=== PATIENT | female | born 1940 | race Caucasian/White ===

== ENCOUNTER 2016-07-17 18:50 | Emergency (ER) | payer OTHER ==
[~2016-07-17] VITALS: Ht 147.3 cm; Wt 44.5 kg
[2016-07-17 18:50] VITALS: BP_SYST 111
[~2016-07-17 18:50] MED LIST: METFORMIN; [UNRECOGNIZED DRUG - REMARK]
--- NOTE | 2016-07-17 18:50 | NUR ---
BROUGHT IN BY SILVANO MENJIVAR AND PLACED IN BED #3, TRIAGED, REPORT GIVEN TO MAINTENANCE WORKER
--- NOTE | 2016-07-17 19:10 | NUR ---
Pt BIB [facility] from [facility], status post-mechanical fall. Pt stated she was walking alone in the garden, then tripped, fell, and hit Left lateral head. Pt denies KO or dizziness, c/o 2/10 pain. No bruise, skin opening, or active bleeding noted. A&Ox4, denies SOB or chestpain, denies N/V/D. Will continue to monitor
--- NOTE | 2016-07-17 19:20 | NUR ---
at bedside examining pt
[2016-07-17] MEDS ORDERED: IBUPROFEN 400 MG TABLET PO ONE (19:30)
--- NOTE | 2016-07-17 20:15 | NUR ---
Pt daughter was contacted regarding pt being discharged from [facility]. Daughter stated she will arrange transportation for the pt
[2016-07-17 21:40] VITALS: BP_SYST 106
--- NOTE | 2016-07-17 21:40 | NUR ---
Patient given written and verbal discharge instructions and verbalizes understanding. ER MD Hardin discussed with patient the results and treatment provided. Patient in stable condition. ID arm band removed. Rx of motrin given. Patient educated on pain management and to follow up with PMD. Pain Scale 0/10 Opportunity for questions provided and answered.
== END 2016-07-17 21:40 | disposition home or self-care (01) ==
LOC: SED 18:50
DX: S00.03XA Contusion of scalp, initial encounter (principal); E11.9 Type 2 diabetes mellitus without complications; I10 Essential (primary) hypertension; Z88.1 Allergy status to other antibiotic agents; Z88.5 Allergy status to narcotic agent; W18.30XA Fall on same level, unspecified, initial encounter; Y93.89 Activity, other specified; Y99.8 Other external cause status; Y92.89 Other specified places as the place of occurrence of the external cause
CPT/HCPCS: 99283

== ENCOUNTER 2016-11-27 23:47 | Inpatient (IN) | payer OTHER ==
[~2016-11-27] VITALS: Ht 144.8 cm; Wt 44.5 kg
[2016-11-27 23:47] VITALS: BP_SYST 113
[2016-11-27] MEDS ORDERED: CEL20 PO (23:50)
[2016-11-27] MEDS ORDERED: DONE5TAB3 PO (23:50)
[2016-11-27] MEDS ORDERED: FURO-150 PO (23:53)
[2016-11-27] MEDS ORDERED: GINK60TA7 PO (23:54)
[2016-11-27] MEDS ORDERED: SITA25TA3 PO (23:55)
[2016-11-27] MEDS ORDERED: LEVO88TA5 PO (23:55)
[2016-11-27] MEDS ORDERED: MELA3TAB37 PO (23:56)
[2016-11-27] MEDS ORDERED: METO25TA3 PO (23:57)
[2016-11-27] MEDS ORDERED: OMEP20CA10 PO (23:57)
[2016-11-27] MEDS ORDERED: POTA-118 PO (23:58)
[2016-11-27] MEDS ORDERED: PATANOL OP (23:58)
[2016-11-27] MEDS ORDERED: SACC250C8 PO (23:59)
[2016-11-28] MEDS ORDERED: TRAZ-123 PO
[2016-11-28] MEDS ORDERED: SIMV40TA5 PO
[2016-11-28] MEDS ORDERED: CYAN100067 SL (00:01)
[2016-11-28] MEDS ORDERED: IBUP-1479 PO (00:02)
[2016-11-28] MEDS ORDERED: CHOL100035 PO (00:02)
[2016-11-28] MEDS ORDERED: HYDR-1189 PO (00:03)
[2016-11-28] MEDS ORDERED: AMOX500C2 PO (00:03)
[2016-11-28] MEDS ORDERED: [UNRECOGNIZED DRUG - OTHER] TP (00:05)
[2016-11-28 00:38] LABS: HEMATOCRIT 36.2 % (36-48); HEMOGLOBIN 12.5 g/dL (12.0-16.0); MEAN CORPUSCULAR HEMOGLOBIN 32 pg (27-31); MEAN CORPUSCULAR HGB CONC 35 % (32-36); MEAN CORPUSCULAR VOLUME 94 fL (79.0-98.0); PLATELET COUNT (AUTO) 100 K/uL (130-430); RED BLOOD CELL COUNT(AUTO) 3.87 MIL/uL (4.2-6.2); RED CELL DISTRIBUTION WIDTH 12.6 % (9.0-15.0); WHITE BLOOD COUNT (AUTO) 9.7 K/uL (4.8-10.8)
[2016-11-28 00:43] LABS: ANION GAP 7 (5-15); CALCIUM 9.1 mg/dL (8.4-11.0); CHLORIDE 105 mmol/L (98-107); CREATININE 1.07 mg/dL (0.55-1.30); GLUCOSE 187 mg/dL (70-99); SODIUM SERUM 140 mmol/L (136-145); UREA NITROGEN, BLOOD 16 mg/dL (8-21)
[2016-11-28 00:47] LABS: INR 0.9 (0.8-1.2); PROTHROMBIN TIME 10.2 SECS (9.5-12.5)
[2016-11-28 00:49] LABS: ALANINE AMINOTRANSFERASE 21 U/L (12-78); ALBUMIN 3.6 g/dL (3.4-4.8); ASPARTATE AMINOTRANSFERASE 29 U/L (10-37); TOTAL BILIRUBIN 0.4 mg/dL (0.0-1.0); TOTAL PROTEIN, SERUM 6.8 g/dL (6.4-8.3)
[2016-11-28 01:22] LABS: ATYPICAL LYMPHOCYTES % 0 % (0-0); BAND % (MANUAL) 0 % (0-6); BASOPHILS % (MANUAL) 0 % (0-2); EOSINOPHILS % (MANUAL) 1 % (0-7); LYMPHOCYTES % (MANUAL) 6 % (20-46); MONOCYTES % (MANUAL) 5 % (0-11)
[2016-11-28 01:32] LABS: BILIRUBIN,URINE NEGATIVE (NEGATIVE); BLOOD, URINE NEGATIVE (NEGATIVE); CLARITY/URINE CLEAR (CLEAR); COLOR,URINE YELLOW (YELLOW); GLUCOSE,URINE NEGATIVE (NEGATIVE); KETONES,URINE 1+ (NEGATIVE); LEUKOCYTE ESTERASE ,URINE TRACE (NEGATIVE); NITRITE, URINE NEGATIVE (NEGATIVE); PH,URINE 5.5 (5.0-8.0); PROTEIN URINE TRACE (NEGATIVE); UROBILINOGEN,URINE 0.2 (0.2-1.0)
[2016-11-28 01:39] LABS: BACTERIA,URINE MODERATE /HPF (None Seen); MUCUS,URINE 1+ /LPF (None Seen); RBC,URINE 0-3 /HPF (0-3)
[2016-11-28] MEDS ORDERED: LEVOFLOXACIN 500 MG/D5W 100 ML IV ONE (01:45)
[2016-11-28 02:10] VITALS: BP_SYST 145
[2016-11-28] MEDS: D5/0.45 NS 1,000 ML IV SCH ×2 (03:21→15:07)
[2016-11-28 04:00] VITALS: BP_SYST 145
[2016-11-28] MEDS: ONDANSETRON HCL 4 MG/2 ML VIAL IVP PRN ×2 (06:32→17:22)
[2016-11-28] MEDS: INSULIN REGULAR, HUMAN 100 UNITS/ML, 10 ML VIAL (novoLIN R) SUBCUT PRN ×3 (06:34→17:03)
[2016-11-28 08:08] VITALS: BP_SYST 102
[2016-11-28 12:08] VITALS: BP_SYST 123
[2016-11-28 16:09] VITALS: BP_SYST 128
[2016-11-28] MEDS: HYDROcodone/ACETAMIN 5-325 MG TAB (NORCO/ VICODIN) PO PRN ×2 (17:02→22:11)
[2016-11-28] MEDS: SIMVASTATIN 40 MG TABLET PO SCH (17:02)
[2016-11-28] MEDS: METOPROLOL SUCCINATE 25 MG TAB.SR.24H (TOPROL XL) PO SCH (17:07)
[2016-11-28] MEDS ORDERED: OLOPATADINE HCL 0.1% OP SCH (21:00)
[2016-11-28 21:24] VITALS: BP_SYST 132
[2016-11-28] MEDS: NAPHAZOLINE HCL/PHENIRAMINE 15 ML OPHT. DROPS OP SCH (22:09)
[2016-11-28] MEDS: traZODone HCL 50 MG TABLET (DESYREL) PO SCH (22:10)
[2016-11-28] MEDS: LACTOBACILLUS RHAMNOSUS GG 1 CAP CAPSULE PO SCH (22:10)
[2016-11-28] MEDS: LEVOFLOXACIN 250 MG/D5W 50 ML IV SCH (22:11)
[2016-11-29 05:18] VITALS: BP_SYST 139
[2016-11-29] MEDS: D5/0.45 NS 1,000 ML IV SCH ×3 (06:16→21:37)
[2016-11-29] MEDS: LEVOTHYROXINE SODIUM 0.088 MG TABLET PO SCH (06:16)
[2016-11-29 08:23] VITALS: BP_SYST 96
[2016-11-29] MEDS ORDERED: SACCHAROMYCES BOULARDII 250 MG CAPSULE (FLORASTOR) PO SCH (09:00)
[2016-11-29] MEDS: CYANOCOBALAMIN 1000 mCg TABLET SL SCH (09:19)
[2016-11-29] MEDS: CITALOPRAM HYDROBROMIDE 20 MG TABLET PO SCH (09:19)
[2016-11-29] MEDS: LACTOBACILLUS RHAMNOSUS GG 1 CAP CAPSULE PO SCH ×2 (09:19→21:33)
[2016-11-29] MEDS: DONEPEZIL HCL 5 MG TABLET (ARICEPT) PO SCH (09:19)
[2016-11-29] MEDS: OMEPRAZOLE 20 MG CAPSULE.DR (PriLOSEC) PO SCH (09:19)
[2016-11-29] MEDS: NAPHAZOLINE HCL/PHENIRAMINE 15 ML OPHT. DROPS OP SCH ×2 (09:20→21:34)
[2016-11-29] MEDS: INSULIN REGULAR, HUMAN 100 UNITS/ML, 10 ML VIAL (novoLIN R) SUBCUT PRN ×2 (12:08→23:33)
[2016-11-29 12:10] VITALS: BP_SYST 111
[2016-11-29 16:24] VITALS: BP_SYST 129
[2016-11-29] MEDS: ONDANSETRON HCL 4 MG/2 ML VIAL IVP PRN (17:25)
[2016-11-29] MEDS: SIMVASTATIN 40 MG TABLET PO SCH (17:28)
[2016-11-29] MEDS: METOPROLOL SUCCINATE 25 MG TAB.SR.24H (TOPROL XL) PO SCH (17:28)
[2016-11-29 21:24] VITALS: BP_SYST 119
[2016-11-29] MEDS: traZODone HCL 50 MG TABLET (DESYREL) PO SCH (21:33)
[2016-11-29] MEDS: LEVOFLOXACIN 250 MG/D5W 50 ML IV SCH (21:34)
[2016-11-30 00:14] VITALS: BP_SYST 136
[2016-11-30 03:34] VITALS: BP_SYST 106
[2016-11-30 07:13] LABS: ANION GAP 4 (5-15); CALCIUM 8.5 mg/dL (8.4-11.0); CHLORIDE 108 mmol/L (98-107); CREATININE 0.88 mg/dL (0.55-1.30); GLUCOSE 98 mg/dL (70-99); POTASSIUM 3.8 mmol/L (3.5-5.1); SODIUM SERUM 143 mmol/L (136-145); UREA NITROGEN, BLOOD 11 mg/dL (8-21)
[2016-11-30 07:15] LABS: BASOPHILS % (AUTO) 0.4 % (0.0-2.0); EOSINOPHILS # (AUTO) 0.2 K/uL (0.0-0.4); EOSINOPHILS % (AUTO) 5.2 % (0.0-4.0); HEMATOCRIT 32.6 % (36-48); HEMOGLOBIN 10.9 g/dL (12.0-16.0); LYMPHOCYTES # (AUTO) 0.8 K/uL (1.0-5.5); LYMPHOCYTES % (AUTO) 19.8 % (20.5-51.5); MEAN CORPUSCULAR HEMOGLOBIN 32 pg (27-31); MEAN CORPUSCULAR HGB CONC 33 % (32-36); MEAN CORPUSCULAR VOLUME 95 fL (79.0-98.0); MONOCYTES # (AUTO) 0.3 K/uL (0.0-1.0); MONOCYTES % (AUTO) 8.3 % (1.7-9.3); NEUTROPHILS # (AUTO) 2.8 K/uL (1.8-7.7); NEUTROPHILS % (AUTO) 66.3 % (40.0-70.0); RED BLOOD CELL COUNT(AUTO) 3.43 MIL/uL (4.2-6.2); RED CELL DISTRIBUTION WIDTH 12.6 % (9.0-15.0)
[2016-11-30 07:28] LABS: ALANINE AMINOTRANSFERASE 18 U/L (12-78); ALBUMIN 2.8 g/dL (3.4-4.8); ASPARTATE AMINOTRANSFERASE 22 U/L (10-37); TOTAL BILIRUBIN 0.4 mg/dL (0.0-1.0); TOTAL PROTEIN, SERUM 5.6 g/dL (6.4-8.3); WHITE BLOOD COUNT (AUTO) 4.1 K/uL (4.8-10.8)
[2016-11-30] MEDS: D5/0.45 NS 1,000 ML IV SCH (07:58)
[2016-11-30] MEDS: LEVOTHYROXINE SODIUM 0.088 MG TABLET PO SCH (07:58)
[2016-11-30 08:44] LABS: PLATELET COUNT (AUTO) 74 K/uL (130-430)
[2016-11-30] MEDS: OMEPRAZOLE 20 MG CAPSULE.DR (PriLOSEC) PO SCH (09:35)
[2016-11-30] MEDS: LACTOBACILLUS RHAMNOSUS GG 1 CAP CAPSULE PO SCH (09:35)
[2016-11-30] MEDS: NAPHAZOLINE HCL/PHENIRAMINE 15 ML OPHT. DROPS OP SCH (09:35)
[2016-11-30] MEDS: CITALOPRAM HYDROBROMIDE 20 MG TABLET PO SCH (09:36)
[2016-11-30] MEDS: DONEPEZIL HCL 5 MG TABLET (ARICEPT) PO SCH (09:36)
[2016-11-30] MEDS: CYANOCOBALAMIN 1000 mCg TABLET SL SCH (09:36)
[2016-11-30] MEDS ORDERED: LEVOFLOXACIN 500 MG TABLET PO SCH (10:00)
[2016-11-30] MEDS: ONDANSETRON HCL 4 MG/2 ML VIAL IVP PRN (11:58)
[2016-11-30 11:59] VITALS: BP_SYST 127
[2016-11-30 12:53] VITALS: BP_SYST 132
[2016-12-03] MEDS ORDERED: HYDR-1189 PO (23:56)
[2016-12-04] MEDS ORDERED: IBUP-1479 PO (00:05)
== END 2016-11-30 14:10 | disposition home health service (06) | DRG 690 ==
LOC: SED 23:47 → STU 11-28 01:53 → SMU 11-29 08:57
DX: N39.0 Urinary tract infection, site not specified (principal); I12.9 Hypertensive chronic kidney disease with stage 1 through stage 4 chronic kidney disease, or unspecified chronic kidney disease; E11.22 Type 2 diabetes mellitus with diabetic chronic kidney disease; N18.9 Chronic kidney disease, unspecified; I48.91 Unspecified atrial fibrillation; F03.90 Unspecified dementia, unspecified severity, without behavioral disturbance, psychotic disturbance, mood disturbance, and anxiety; I95.9 Hypotension, unspecified; W19.XXXA Unspecified fall, initial encounter; Y93.89 Activity, other specified; Y92.89 Other specified places as the place of occurrence of the external cause; Y99.8 Other external cause status; Z88.1 Allergy status to other antibiotic agents; Z88.5 Allergy status to narcotic agent; Z79.84 Long term (current) use of oral hypoglycemic drugs; Z79.899 Other long term (current) drug therapy
CPT/HCPCS: 36415; 70450-TC; 71010; 72125-TC; 80053; 81000-TC; 82962; 83605; 84443-TC; 84484; 85007; 85025; 85027; 85610-TC; 85730-TC; 87040-TC; 87081; 87086; 93306; 93970; 96365; 99285; J1815; J1956; J2405

== ENCOUNTER 2017-04-13 14:43 | Emergency (ER) | payer OTHER ==
[~2017-04-13] VITALS: Ht 149.9 cm; Wt 43.1 kg
[~2017-04-13 14:43] MED LIST changes: +CEL20 PO; +CHOL100035 PO; +CYAN100067 SL; +DONE5TAB3 PO; +FURO-150 PO; +GINK60TA7 PO; +HYDR-1189 PO; +IBUP-1479 PO; +LEVO500T20 PO; +LEVO88TA5 PO; +MELA3TAB37 PO; -METFORMIN; +METH4TAB3 PO; +METO25TA3 PO; +OMEP20CA10 PO; +PATANOL OP; +POTA-118 PO; +SACC250C8 PO; +SIMV40TA5 PO; +SITA25TA3 PO; +TRAZ-123 PO; +[UNRECOGNIZED DRUG - OTHER] TP; -[UNRECOGNIZED DRUG - REMARK]
[2017-04-13 14:45] VITALS: BP_SYST 98
[2017-04-13 15:07] LABS: BASOPHILS # (AUTO) 0.1 K/uL (0.0-0.2); BASOPHILS % (AUTO) 1.5 % (0.0-2.0); EOSINOPHILS # (AUTO) 0.2 K/uL (0.0-0.4); HEMATOCRIT 35.9 % (36-48); LYMPHOCYTES % (AUTO) 11.7 % (20.5-51.5); MEAN CORPUSCULAR HEMOGLOBIN 32 pg (27-31); MEAN CORPUSCULAR HGB CONC 34 % (32-36); MEAN CORPUSCULAR VOLUME 95 fL (79.0-98.0); MONOCYTES # (AUTO) 0.5 K/uL (0.0-1.0); MONOCYTES % (AUTO) 5.8 % (1.7-9.3); NEUTROPHILS # (AUTO) 6.5 K/uL (1.8-7.7); PLATELET COUNT (AUTO) 143 K/uL (130-430); RED BLOOD CELL COUNT(AUTO) 3.79 MIL/uL (4.2-6.2); RED CELL DISTRIBUTION WIDTH 12.1 % (9.0-15.0); WHITE BLOOD COUNT (AUTO) 8.3 K/uL (4.8-10.8)
[2017-04-13 15:19] LABS: ANION GAP 7 (5-15); CALCIUM 8.9 mg/dL (8.4-11.0); CHLORIDE 99 mmol/L (98-107); CREATININE 1.08 mg/dL (0.55-1.30); GLUCOSE 240 mg/dL (70-99); POTASSIUM 4.3 mmol/L (3.5-5.1); SODIUM SERUM 136 mmol/L (136-145); UREA NITROGEN, BLOOD 16 mg/dL (8-21)
[2017-04-13 15:24] LABS: ALANINE AMINOTRANSFERASE 28 U/L (12-78); ASPARTATE AMINOTRANSFERASE 18 U/L (10-37); TOTAL BILIRUBIN 0.4 mg/dL (0.0-1.0)
[2017-04-13 18:35] VITALS: BP_SYST 116
== END 2017-04-13 18:35 | disposition home or self-care (01) ==
LOC: SED 14:43
DX: S00.33XA Contusion of nose, initial encounter (principal); J44.9 Chronic obstructive pulmonary disease, unspecified; E07.9 Disorder of thyroid, unspecified; I12.0 Hypertensive chronic kidney disease with stage 5 chronic kidney disease or end stage renal disease; E11.22 Type 2 diabetes mellitus with diabetic chronic kidney disease; N18.6 End stage renal disease; Z88.1 Allergy status to other antibiotic agents; Z88.6 Allergy status to analgesic agent; Z79.899 Other long term (current) drug therapy; W06.XXXA Fall from bed, initial encounter; Y93.89 Activity, other specified; Y92.098 Other place in other non-institutional residence as the place of occurrence of the external cause; Y99.8 Other external cause status
CPT/HCPCS: 36415; 70450-TC; 80053; 85025; 93005; 99285

== ENCOUNTER 2017-06-16 20:35 | Emergency (ER) | payer OTHER ==
[~2017-06-16] VITALS: Ht 149.9 cm; Wt 43.1 kg
[2017-06-16 20:43] VITALS: BP_SYST 125
[2017-06-16] MEDS ORDERED: DONE10TA44 PO (20:52)
[2017-06-16] MEDS ORDERED: NACL 0.9% 1,000 ML IV ONE (20:54)
[2017-06-16] MEDS ORDERED: GLIM1TAB2 PO (20:54)
[2017-06-16] MEDS ORDERED: ALBU8.5H8 INH (20:58)
[2017-06-16] MEDS ORDERED: KETOROLAC TROMETHAMINE 30 MG VIAL IVP ONE (21:00)
[2017-06-16 21:30] LABS: BASOPHILS # (AUTO) 0.1 K/uL (0.0-0.2); BASOPHILS % (AUTO) 0.8 % (0.0-2.0); EOSINOPHILS # (AUTO) 0.2 K/uL (0.0-0.4); EOSINOPHILS % (AUTO) 2.1 % (0.0-4.0); HEMATOCRIT 38.4 % (36-48); HEMOGLOBIN 12.9 g/dL (12.0-16.0); LYMPHOCYTES # (AUTO) 1.5 K/uL (1.0-5.5); LYMPHOCYTES % (AUTO) 20.8 % (20.5-51.5); MEAN CORPUSCULAR HEMOGLOBIN 32 pg (27-31); MEAN CORPUSCULAR HGB CONC 34 % (32-36); MEAN CORPUSCULAR VOLUME 95 fL (79.0-98.0); MONOCYTES # (AUTO) 0.5 K/uL (0.0-1.0); MONOCYTES % (AUTO) 7.4 % (1.7-9.3); NEUTROPHILS # (AUTO) 5.1 K/uL (1.8-7.7); NEUTROPHILS % (AUTO) 68.9 % (40.0-70.0); PLATELET COUNT (AUTO) 124 K/uL (130-430); RED BLOOD CELL COUNT(AUTO) 4.07 MIL/uL (4.2-6.2); RED CELL DISTRIBUTION WIDTH 12.9 % (9.0-15.0); WHITE BLOOD COUNT (AUTO) 7.4 K/uL (4.8-10.8)
[2017-06-16 21:41] LABS: ANION GAP 6 (5-15); CALCIUM 9.9 mg/dL (8.4-11.0); CHLORIDE 105 mmol/L (98-107); CREATININE 0.91 mg/dL (0.55-1.30); GLUCOSE 89 mg/dL (70-99); SODIUM SERUM 139 mmol/L (136-145); UREA NITROGEN, BLOOD 13 mg/dL (8-21)
[2017-06-16] MEDS ORDERED: ONDANSETRON 4 MG ODT TAB PO ONE (21:45)
[2017-06-16] MEDS ORDERED: [UNRECOGNIZED DRUG - CODE] IN (21:45)
[2017-06-16 21:46] LABS: ALANINE AMINOTRANSFERASE 21 U/L (12-78); ALBUMIN 3.5 g/dL (3.4-4.8); ASPARTATE AMINOTRANSFERASE 28 U/L (10-37); LIPASE 176 U/L (73-393); TOTAL BILIRUBIN 0.3 mg/dL (0.0-1.0)
[2017-06-16 22:03] LABS: BILIRUBIN,URINE NEGATIVE (NEGATIVE); BLOOD, URINE NEGATIVE (NEGATIVE); CLARITY/URINE CLEAR (CLEAR); COLOR,URINE YELLOW (YELLOW); GLUCOSE,URINE NEGATIVE (NEGATIVE); KETONES,URINE NEGATIVE (NEGATIVE); LEUKOCYTE ESTERASE ,URINE NEGATIVE (NEGATIVE); NITRITE, URINE NEGATIVE (NEGATIVE); PH,URINE 7.5 (5.0-8.0); PROTEIN URINE NEGATIVE (NEGATIVE); UROBILINOGEN,URINE 0.2 (0.2-1.0)
[2017-06-17] VITALS: BP_SYST 127
== END 2017-06-17 | disposition home or self-care (01) ==
LOC: SED 20:35
DX: R10.13 Epigastric pain (principal); R11.2 Nausea with vomiting, unspecified; J44.9 Chronic obstructive pulmonary disease, unspecified; I12.9 Hypertensive chronic kidney disease with stage 1 through stage 4 chronic kidney disease, or unspecified chronic kidney disease; E11.22 Type 2 diabetes mellitus with diabetic chronic kidney disease; N18.9 Chronic kidney disease, unspecified; I48.91 Unspecified atrial fibrillation; Z79.899 Other long term (current) drug therapy; Z88.5 Allergy status to narcotic agent; Z88.1 Allergy status to other antibiotic agents
CPT/HCPCS: 36415; 80053; 81003; 83690; 85025; 99284; Q0162

== ENCOUNTER 2017-06-24 19:33 | Emergency (ER) | payer OTHER ==
[~2017-06-24] VITALS: Ht 157.5 cm; Wt 63.5 kg
[2017-06-24 19:33] VITALS: BP_SYST 157
[~2017-06-24 19:33] MED LIST changes: +ALBU8.5H8 INH; +DONE10TA44 PO; -DONE5TAB3 PO; -GINK60TA7 PO; +GLIM1TAB2 PO; -HYDR-1189 PO; -IBUP-1479 PO; -LEVO500T20 PO; -MELA3TAB37 PO; -METH4TAB3 PO; -OMEP20CA10 PO; -SACC250C8 PO; -SITA25TA3 PO; +[UNRECOGNIZED DRUG - CODE] IN; -[UNRECOGNIZED DRUG - OTHER] TP
--- NOTE | 2017-06-24 19:33 | NUR ---
Placed in room 01 . Placed on youth nutritional monitor, blood pressure machine and pulse oximeter. To gown for exam. Side rails up. Report given to ALEKSANDAR Ramírez.
--- NOTE | 2017-06-24 19:45 | NUR ---
Patient brought in by ambulance c/o R dull chest pain that started at dinner time , 6/10 pain level. Patient AAO x 3. Patient denies N&V, or indigestion. VS stable. No SOB or acute distress noted. Will continue to monitor.
--- NOTE | 2017-06-24 20:05 | NUR ---
#22 gauge angiocath placed to RFA. Use of asceptic technique. Opsite placed over site. Blood return noted. Blood for lab drawn from site. Flushed with 10 cc of normal saline. No evidence of infiltration noted. Patient tolerated well.
--- NOTE | 2017-06-24 21:24 | NUR ---
ER Dr. Botello at bedside examining patient.
--- NOTE | 2017-06-24 21:41 | NUR ---
Radiology at bedside for CXR.
[2017-06-24 21:42] LABS: BASOPHILS % (AUTO) 0.5 % (0.0-2.0); EOSINOPHILS # (AUTO) 0.2 K/uL (0.0-0.4); EOSINOPHILS % (AUTO) 3.1 % (0.0-4.0); HEMATOCRIT 35.3 % (36-48); HEMOGLOBIN 11.9 g/dL (12.0-16.0); LYMPHOCYTES # (AUTO) 0.8 K/uL (1.0-5.5); LYMPHOCYTES % (AUTO) 14.3 % (20.5-51.5); MEAN CORPUSCULAR HEMOGLOBIN 32 pg (27-31); MEAN CORPUSCULAR HGB CONC 34 % (32-36); MEAN CORPUSCULAR VOLUME 96 fL (79.0-98.0); MONOCYTES # (AUTO) 0.4 K/uL (0.0-1.0); MONOCYTES % (AUTO) 7.2 % (1.7-9.3); NEUTROPHILS # (AUTO) 4.1 K/uL (1.8-7.7); NEUTROPHILS % (AUTO) 74.9 % (40.0-70.0); PLATELET COUNT (AUTO) 114 K/uL (130-430); RED BLOOD CELL COUNT(AUTO) 3.69 MIL/uL (4.2-6.2); RED CELL DISTRIBUTION WIDTH 12.8 % (9.0-15.0); WHITE BLOOD COUNT (AUTO) 5.5 K/uL (4.8-10.8)
--- NOTE | 2017-06-24 22:07 | NUR ---
Patient ambulatory to restroom. Ambulates with steady gait.
[2017-06-24 22:19] LABS: POTASSIUM 3.5 mmol/L (3.5-5.1)
[2017-06-24 22:20] LABS: CREATININE 0.97 mg/dL (0.55-1.30)
[2017-06-24 22:21] LABS: TOTAL BILIRUBIN 0.3 mg/dL (0.0-1.0)
--- NOTE | 2017-06-24 23:11 | NUR ---
ED MD Botello at bedside reassessing patient.
[2017-06-24 23:56] VITALS: BP_SYST 160
--- NOTE | 2017-06-24 23:56 | NUR ---
Patient transported back to [facility] via [facility].
--- NOTE | 2017-06-24 23:56 | NUR ---
Patient given written and verbal discharge instructions and verbalizes understanding. ER MD discussed with patient the results and treatment provided. Patient in stable condition. ID arm band removed. IV catheter removed intact and dressing applied, no active bleeding. No Rx given. Patient educated on pain management and to follow up with PMD. Pain Scale 2/10 at this time, tolerable for patient. Opportunity for questions provided and answered. Medication side effect fact sheet provided.
== END 2017-06-24 23:56 | disposition home or self-care (01) ==
LOC: SED 19:33
DX: M79.1 Myalgia (principal); J44.9 Chronic obstructive pulmonary disease, unspecified; I12.9 Hypertensive chronic kidney disease with stage 1 through stage 4 chronic kidney disease, or unspecified chronic kidney disease; E11.22 Type 2 diabetes mellitus with diabetic chronic kidney disease; N18.9 Chronic kidney disease, unspecified; I48.91 Unspecified atrial fibrillation; Z79.899 Other long term (current) drug therapy; Z88.1 Allergy status to other antibiotic agents; Z88.5 Allergy status to narcotic agent
CPT/HCPCS: 36415; 71045; 80053; 83690-TC; 83880; 84484; 85025; 93005; 99285